=== PATIENT | female | born 1975 | race Caucasian/White ===

== ENCOUNTER 2018-07-11 18:12 | Observation (INO) | payer BC ==
[2018-07-11] MEDS ORDERED: SODIUM CHLORIDE 0.9% 1,000 ML IV STA (18:46)
[2018-07-11] MEDS ORDERED: MORPHINE SULFATE 2 MG/ML SYRINGE IVP STA (18:46)
[2018-07-11] MEDS ORDERED: diphenhydrAMINE 50 MG/ML 1 ML VIAL IVP STA (18:46)
--- NOTE | 2018-07-11 18:51 | ED ---
General Adult HPI - General Chief complaint: Abdominal Pain Stated complaint: Abd Pain-transfer from [place] Source: patient Mode of arrival: ambulatory Limitations: no limitations - History of Present Illness Initial comments: Dictation was produced using [employer] dictation software. please excuse any grammatical, word or spelling errors. Chief Complaint: 42-year-old female with no significant past medical history presents for symptomatic cholelithiasis. History of Present Illness: 2-year-old female was transferred from outside emergency department for symptomatic cholelithiasis. According to documentation patient was sent here for symptomatic cholelithiasis. They state in the documentation that general surgeon felt that patient needed ERCP which was not in service provided at that facility. Transferred her over. There is no area in the documentation that reports that there was concern for acute cholecystitis however patient did have mild leukocytosis of 11.3. Patient currently feels asymptomatic. She does report that her symptoms are only postprandial. The ROS documented in this emergency department record has been reviewed and confirmed by me. Those systems with pertinent positive or negative responses have been documented in the HPI. All other systems are other negative and/or noncontributory. - Related Data Allergies Allergy/AdvReac Type Severity Reaction Status Date / Time No Known Allergies Allergy Verified 07/11/18 18:20 Review of Systems ROS Statement: Those systems with pertinent positive or pertinent negative responses have been documented in the HPI. ROS Other: All systems not noted in ROS Statement are negative. Past Medical History Past Medical History: No Reported History History of Any Multi-Drug Resistant Organisms: None Reported Past Surgical History: No Surgical Hx Reported Past Psychological History: No Psychological Hx Reported Smoking Status: Current every day smoker Past Alcohol Use History: None Reported Past Drug Use History: None Reported General Exam - General Exam Comments Initial Comments: PHYSICAL EXAM: General Impression: Alert and oriented x3, not in acute distress HEENT: Normocephalic atraumatic, extra-ocular movements intact, pupils equal and reactive to light bilaterally, mucous membranes moist. Cardiovascular: Heart regular rate and rhythm, S1&S2 audible, no murmurs, rubs or gallops Chest: Lungs clear to auscultation bilaterally, no rhonchi, no wheeze, no rales Abdomen: Bowel sounds present, abdomen soft, positive right upper quadrant tenderness, non-distended, no organomegaly Musculoskeletal: Pulses present and equal in all extremities, no peripheral edema Motor: Power 5/5 bilaterally, no focal deficits noted Neurological: CN II-XII grossly intact, no focal motor or sensory deficits noted Skin: Intact with no visualized rashes Psych: Normal affect and mood Limitations: no limitations Course Vital Signs 07/11/18 07/11/18 18:16 19:21 Temperature 98.7 F 98.2 F Pulse Rate 83 81 Respiratory 20 18 Rate Blood Pressure 116/71 120/67 O2 Sat by Pulse 98 98 Oximetry Medical Decision Making - Medical Decision Making ED course: 42-year-old female transferred from [facility] for cholelithiasis. Vital signs upon arrival are within normal limits. Repeat laboratory evaluation was obtained here in emergency department. No leukocytosis. Ultrasound was loaded. Transfer document she was reviewed by myself. There is findings to suggest choledocholithiasis however no cholecystitis and appears comfortable. Metabolic panel shows findings to suggest biliary ductal irritation and biliary ductal obstruction. Patient given ceftriaxone and Flagyl. She'll be admitted observation. GI and general surgery was consulted. - Lab Data Result diagrams: 07/11/18 19:30 07/11/18 19:30 Lab Results 07/11/18 07/11/18 Range/Units 19:30 19:30 WBC 7.6 (3.8-10.6) k/uL RBC 4.69 (3.80-5.40) m/uL Hgb 13.6 (11.4-16.0) gm/dL Hct 43.2 (34.0-46.0) % MCV 92.1 (80.0-100.0) fL MCH 29.1 (25.0-35.0) pg MCHC 31.5 (31.0-37.0) g/dL RDW 14.1 (11.5-15.5) % Plt Count 250 (150-450) k/uL Neutrophils % 66 % Lymphocytes % 22 % Monocytes % 8 % Eosinophils % 1 % Basophils % 1 % Neutrophils # 5.0 (1.3-7.7) k/uL Lymphocytes # 1.7 (1.0-4.8) k/uL Monocytes # 0.6 (0-1.0) k/uL Eosinophils # 0.1 (0-0.7) k/uL Basophils # 0.0 (0-0.2) k/uL Sodium 142 (137-145) mmol/L Potassium 3.4 L (3.5-5.1) mmol/L Chloride 110 H (98-107) mmol/L Carbon Dioxide 22 (22-30) mmol/L Anion Gap 10 mmol/L BUN 5 L (7-17) mg/dL Creatinine 0.50 L (0.52-1.04) mg/dL Est GFR (CKD-EPI)AfAm >90 (>60 ml/min/1.73 sqM) Est GFR (CKD-EPI)NonAf >90 (>60 ml/min/1.73 sqM) Glucose 72 L (74-99) mg/dL Calcium 8.5 (8.4-10.2) mg/dL Total Bilirubin 4.3 H (0.2-1.3) mg/dL AST 188 H (14-36) U/L ALT 300 H (9-52) U/L Alkaline Phosphatase 218 H (38-126) U/L Total Protein 6.6 (6.3-8.2) g/dL Albumin 3.6 (3.5-5.0) g/dL Lipase 37 (23-300) U/L Disposition Clinical Impression: Choledocholithiasis Disposition: ADMITTED IP TO THIS HOSP Condition: Fair Referrals: Jackie Reed PAC [REFERRING] - 1-2 days Time of Disposition: 20:04
[2018-07-11] MEDS ORDERED: metroNIDAZOLE-NS PMX 500 MG in SALINE 1 100ML.BAG IVPB STA (19:12)
[2018-07-11] MEDS ORDERED: cefTRIAXone IN SWFI 1,000 MG/10 ML SYRINGE IVP STA (19:13)
[2018-07-11 19:44] LABS: Basophils % (A) 1 %; Eosinophils # (A) 0.1 k/uL (0-0.7); Eosinophils % (A) 1 %; HCT 43.2 % (34.0-46.0); HGB 13.6 gm/dL (11.4-16.0); Lymphocytes # (A) 1.7 k/uL (1.0-4.8); Lymphocytes % (A) 22 %; MCH 29.1 pg (25.0-35.0); MCHC 31.5 g/dL (31.0-37.0); MCV 92.1 fL (80.0-100.0); Mean Platelet Volume 6.5; Monocytes # (A) 0.6 k/uL (0-1.0); Monocytes % (A) 8 %; Neutrophils % (A) 66 %; Platelet Count 250 k/uL (150-450); RBC 4.69 m/uL (3.80-5.40); RDW 14.1 % (11.5-15.5); WBC 7.6 k/uL (3.8-10.6)
[2018-07-11 19:54] LABS: ALT 300 U/L (9-52); AST 188 U/L (14-36); Albumin 3.6 g/dL (3.5-5.0); Alkaline Phosphatase 218 U/L (38-126); Anion Gap 10 mmol/L; Blood Urea Nitrogen 5 mg/dL (7-17); Calcium 8.5 mg/dL (8.4-10.2); Carbon Dioxide 22 mmol/L (22-30); Chloride 110 mmol/L (98-107); Glucose 72 mg/dL (74-99); Lipase 37 U/L (23-300); Potassium 3.4 mmol/L (3.5-5.1); Sodium 142 mmol/L (137-145); Total Bilirubin 4.3 mg/dL (0.2-1.3); Total Protein 6.6 g/dL (6.3-8.2)
[2018-07-11] MEDS ORDERED: NALOXONE 0.4 MG/ML 1 ML VIAL IV PRN (20:00)
[2018-07-11] MEDS ORDERED: ACETAMINOPHEN TAB 325 MG TAB PO PRN (21:03)
[2018-07-11] MEDS: ALPRAZolam 0.25 MG TAB PO SCH (22:37)
[2018-07-11] MEDS: MELATONIN 3 MG TABLET PO SCH (22:37)
[2018-07-11] MEDS: PARoxetine 20 MG TAB PO SCH (22:37)
[2018-07-12] MEDS ORDERED: MORPHINE SULFATE 4 MG/ML SYRINGE IVP STA (03:41)
[2018-07-12] MEDS ORDERED: POTASSIUM CHLORIDE ER 20 MEQ TAB.ER PO STA (06:27)
--- NOTE | 2018-07-12 06:27 | P.HPIM ---
History of Present Illness H&P Date: 07/11/18 Chief Complaint: transferred due to choledocholithiasis for ERCP 42-year-old female with no significant past medical history. Patient was transferred to the hospital after being evaluated by general surgery who thought patient could benefit from ERCP Patient presented to the hospital due to right upper quadrant abdominal pain after eating. pain colicky severe, radiating to the back. Associated with feeling nauseous. Patient reports that normally she doesn't have any symptoms except after eating heavy meals which has started over the past 2 days . she noticed similar pain 9 months ago after having her baby, but only was having very sporadic mild pain over the past 9 months with certain meals that she thought due to indigestion. Denies any fevers or chills denies any coughing chest pain denies any changes in her urinary or bowel habits. Denies any changes in vision or hearing denies any headache. Denies any focal neurologic deficits. She does notice dark urine and pale stool. she is currently having very mild discomfort. Review of Systems Pertinent positives as noted in HPI. All other systems were reviewed and are negative Past Medical History Past Medical History: No Reported History Additional Past Medical History / Comment(s): at age 32 was getting heart palpitations and normal heart susanne was 119-120's -"she was placed on xanax and heart rate stays between 69-96" History of Any Multi-Drug Resistant Organisms: None Reported Past Surgical History: Ear Surgery Additional Past Surgical History / Comment(s): Tubes put in ears at 6. Past Anesthesia/Blood Transfusion Reactions: No Reported Reaction Smoking Status: Current every day smoker - Past Family History Mother Additional Family Medical History / Comment(s): gallstones Father Family Medical History: No Reported History Additional Family Medical History / Comment(s): dads sister age 42 lung cancer and had a cousin young from a brain tumor Medications and Allergies Home Medications Medication Instructions Recorded Confirmed Type ALPRAZolam [Xanax] 0.25 mg PO HS 07/11/18 07/11/18 History PARoxetine [Paxil] 20 mg PO HS 07/11/18 07/11/18 History Allergies Allergy/AdvReac Type Severity Reaction Status Date / Time No Known Allergies Allergy Verified 07/11/18 21:39 Physical Exam Vitals: Vital Signs Temp Pulse Pulse Resp BP BP Pulse Ox 07/11/18 23:00 98.4 F 78 18 123/74 100 07/11/18 20:00 70 18 126/81 100 07/11/18 19:21 98.2 F 81 18 120/67 98 07/11/18 18:16 98.7 F 83 20 116/71 98 Intake and Output 07/11/18 07/11/18 07/12/18 14:59 22:59 06:59 Intake Total 480 0 Balance 480 0 Intake: Oral 480 0 Other: Weight 82.508 kg Constitutional: No acute distress, conversant, pleasant Eyes: Slight scleral jaundice, moist conjunctiva, no lid-lag Pupils equal round reactive to light ENMT: NC/AT Oropharynx clear, no erythema, exudates Neck: Supple, FROM, no masses, or JVD No carotid bruits No thyromegaly Lungs: Clear to auscultation Clear to percussion Normal respiratory effort, no accessory muscle use Cardiovascular: Heart regular in rate and rhythm, No murmurs, gallops, or rubs No peripheral edema Abdominal: Soft Tenderness to palpation in the right upper quadrant of the abdomen , no guarding, rebound or rigidity Abdomen moving with respiration Normoactive bowel sounds No hepatomegaly, No splenomegaly No palpable mass No abdominal wall hernia noted Skin: Normal temperature, tone, texture, turgor No induration No subcutaneous nodules No rash, lesions No ulcers Extremities: No digital cyanosis No clubbing Pedal pulses intact and symmetrical Radial pulses intact and symmetrical No calf tenderness Psychiatric: Alert and oriented to person, place and time Appropriate affect fair judgment Neuro Muscles Strength 5/5 in all 4 extremities Sensation to light touch grossly present throughout Cranial nerves II-XII grossly intact No focal sensory deficits Lymphatics: no palpable cervical or supraclavicular , or inguinal lymph nodes Results CBC & Chem 7: 07/11/18 19:30 07/11/18 19:30 Labs: Abnormal Lab Results - Last 24 Hours (Table) 07/11/18 Range/Units 19:30 Potassium 3.4 L (3.5-5.1) mmol/L Chloride 110 H (98-107) mmol/L BUN 5 L (7-17) mg/dL Creatinine 0.50 L (0.52-1.04) mg/dL Glucose 72 L (74-99) mg/dL Total Bilirubin 4.3 H (0.2-1.3) mg/dL AST 188 H (14-36) U/L ALT 300 H (9-52) U/L Alkaline Phosphatase 218 H (38-126) U/L Thrombosis Risk Factor Assmnt - Choose All That Apply Any of the Below Risk Factors Present?: Yes Each Factor Represents 1 point: Age 41-60 years, Obesity (BMI >25), Varicose veins Other Risk Factors: No Other congenital or acquired thrombophilia - If yes, enter type in comment: No Thrombosis Risk Factor Assessment Total Risk Factor Score: 3 Thrombosis Risk Factor Assessment Level: Moderate Risk Assessment and Plan Assessment: 42-year-old female with no significant past medical history admitted under observation due to choledocholithiasis resulting in elevated liver enzymes and elevation of bilirubin, doubt acute cholecystitis at this time as patient has no white count elevation. Patient was transferred from [facility] due to no available to ERCP. General surgery services both consult Plan: Choledocholithiasis with elevated liver enzymes Nothing by mouth after midnight Fluid hydration Pain control General surgery and GI service consult Patient received 1 dose of antibiotic in the ED continue with rocephine Abd US Hypokalemia replaced by mouth DVT prophylaxis heparin subcu 3 times a day Preformed a thorough record review from recent ER visit at [facility] CODE STATUS: Full code Discussed with: Patient, ER, RN Anticipated discharge: <[address]: Home A total of 50 minutes was spent on the care of this complex patient more than 50 % of the time was spent in counseling and care coordination.
[2018-07-12] MEDS ORDERED: SODIUM CHLORIDE 0.9% 1,000 ML IV SCH (07:15)
[2018-07-12 07:20] LABS: Basophils % (A) 0 %; Eosinophils # (A) 0.1 k/uL (0-0.7); Eosinophils % (A) 1 %; HCT 42.9 % (34.0-46.0); HGB 13.3 gm/dL (11.4-16.0); Lymphocytes # (A) 1.5 k/uL (1.0-4.8); Lymphocytes % (A) 18 %; MCH 28.8 pg (25.0-35.0); MCHC 30.9 g/dL (31.0-37.0); MCV 93.2 fL (80.0-100.0); Mean Platelet Volume 6.9; Monocytes # (A) 0.7 k/uL (0-1.0); Monocytes % (A) 8 %; Neutrophils # (A) 5.9 k/uL (1.3-7.7); Neutrophils % (A) 71 %; Platelet Count 223 k/uL (150-450); RDW 14.1 % (11.5-15.5); WBC 8.3 k/uL (3.8-10.6)
[2018-07-12 07:34] LABS: ALT 264 U/L (9-52); AST 165 U/L (14-36); Albumin 3.2 g/dL (3.5-5.0); Alkaline Phosphatase 209 U/L (38-126); Anion Gap 7 mmol/L; Blood Urea Nitrogen 6 mg/dL (7-17); Calcium 8.3 mg/dL (8.4-10.2); Carbon Dioxide 23 mmol/L (22-30); Chloride 111 mmol/L (98-107); Glucose 76 mg/dL (74-99); Potassium 4.1 mmol/L (3.5-5.1); Sodium 141 mmol/L (137-145); Total Bilirubin 4.1 mg/dL (0.2-1.3); Total Protein 6.3 g/dL (6.3-8.2)
[2018-07-12] MEDS: cefTRIAXone IN SWFI 1,000 MG/10 ML SYRINGE IVP SCH (08:43)
[2018-07-12] MEDS: HEPARIN SODIUM,PORCINE 5,000 UNIT/ML 1 ML VIAL SQ SCH ×2 (08:43→16:26)
[2018-07-12] MEDS: MORPHINE SULFATE 4 MG/ML SYRINGE IVP PRN ×3 (08:52→18:08)
--- NOTE | 2018-07-12 09:43 | P.GSCN ---
History of Present Illness Consult date: 07/12/18 Reason for Consult: Abdominal pain and elevated liver function tests History of present illness: The patient's a 42-year-old female who was transferred from [facility] due to concerns for choledocholithiasis. The patient admits to occasional discomfort in her abdomen with fatty foods since the of her child. Her baby is 9 months old. She will have heartburn symptoms after eating food such as chocolate shake for [employer]. Last 2 days she's noticed that her urine is very dark in her stool is extremely light-colored. She doesn't really notice any jaundice. No fevers or chills. Pain is epigastrium and right upper quadrant. Review of Systems All systems: negative Past Medical History Past Medical History: No Reported History Additional Past Medical History / Comment(s): at age 32 was getting heart palpitations and normal heart susanne was 119-120's -"she was placed on xanax and heart rate stays between 69-96" History of Any Multi-Drug Resistant Organisms: None Reported Past Surgical History: Ear Surgery Additional Past Surgical History / Comment(s): Tubes put in ears at 6. Past Anesthesia/Blood Transfusion Reactions: No Reported Reaction Smoking Status: Current every day smoker - Past Family History Mother Additional Family Medical History / Comment(s): gallstones, mother also required ERCP Father Family Medical History: No Reported History Additional Family Medical History / Comment(s): dads sister age 42 lung cancer and had a cousin young from a brain tumor Medications and Allergies Home Medications Medication Instructions Recorded Confirmed Type ALPRAZolam [Xanax] 0.25 mg PO HS 07/11/18 07/11/18 History PARoxetine [Paxil] 20 mg PO HS 07/11/18 07/11/18 History Allergies Allergy/AdvReac Type Severity Reaction Status Date / Time No Known Allergies Allergy Verified 07/11/18 21:39 Surgical - Exam Osteopathic Statement: *. No significant issues noted on an osteopathic structural exam other than those noted in the History and Physical/Consult. Vital Signs Temp Pulse Resp BP Pulse Ox 98.7 F 83 20 116/71 98 07/11/18 18:16 07/11/18 18:16 07/11/18 18:16 07/11/18 18:16 07/11/18 18:16 - General well developed, well nourished, no distress - Eyes normal ocular movement - Neck trachea midline, no lymphadectomy - Respiratory normal respiratory effort, clear to auscultation - Cardiovascular Rhythm: regular - Abdomen Abdomen: soft, tender (Epigastric and right upper quadrant), no guarding, no rigid, no rebound, no distended Hernia: no umbilical - Psychiatric oriented to time, oriented to person, oriented to place, speech is normal, memory intact Results - Labs 07/12/18 07:08 07/12/18 07:08 Abnormal Lab Results - Last 24 Hours (Table) 07/11/18 07/12/18 07/12/18 Range/Units 19:30 07:08 07:08 MCHC 30.9 L (31.0-37.0) g/dL Potassium 3.4 L (3.5-5.1) mmol/L Chloride 110 H 111 H (98-107) mmol/L BUN 5 L 6 L (7-17) mg/dL Creatinine 0.50 L (0.52-1.04) mg/dL Glucose 72 L (74-99) mg/dL Calcium 8.3 L (8.4-10.2) mg/dL Total Bilirubin 4.3 H 4.1 H (0.2-1.3) mg/dL AST 188 H 165 H (14-36) U/L ALT 300 H 264 H (9-52) U/L Alkaline Phosphatase 218 H 209 H (38-126) U/L Albumin 3.2 L (3.5-5.0) g/dL Diabetes panel 07/11/18 07/12/18 Range/Units 19:30 07:08 Sodium 142 141 (137-145) mmol/L Potassium 3.4 L 4.1 (3.5-5.1) mmol/L Chloride 110 H 111 H (98-107) mmol/L Carbon Dioxide 22 23 (22-30) mmol/L BUN 5 L 6 L (7-17) mg/dL Creatinine 0.50 L 0.57 (0.52-1.04) mg/dL Glucose 72 L 76 (74-99) mg/dL Calcium 8.5 8.3 L (8.4-10.2) mg/dL AST 188 H 165 H (14-36) U/L ALT 300 H 264 H (9-52) U/L Alkaline Phosphatase 218 H 209 H (38-126) U/L Total Protein 6.6 6.3 (6.3-8.2) g/dL Albumin 3.6 3.2 L (3.5-5.0) g/dL Calcium panel 07/11/18 07/12/18 Range/Units 19:30 07:08 Calcium 8.5 8.3 L (8.4-10.2) mg/dL Albumin 3.6 3.2 L (3.5-5.0) g/dL Pituitary panel 07/11/18 07/12/18 Range/Units 19:30 07:08 Sodium 142 141 (137-145) mmol/L Potassium 3.4 L 4.1 (3.5-5.1) mmol/L Chloride 110 H 111 H (98-107) mmol/L Carbon Dioxide 22 23 (22-30) mmol/L BUN 5 L 6 L (7-17) mg/dL Creatinine 0.50 L 0.57 (0.52-1.04) mg/dL Glucose 72 L 76 (74-99) mg/dL Calcium 8.5 8.3 L (8.4-10.2) mg/dL Adrenal panel 07/11/18 07/12/18 Range/Units 19:30 07:08 Sodium 142 141 (137-145) mmol/L Potassium 3.4 L 4.1 (3.5-5.1) mmol/L Chloride 110 H 111 H (98-107) mmol/L Carbon Dioxide 22 23 (22-30) mmol/L BUN 5 L 6 L (7-17) mg/dL Creatinine 0.50 L 0.57 (0.52-1.04) mg/dL Glucose 72 L 76 (74-99) mg/dL Calcium 8.5 8.3 L (8.4-10.2) mg/dL Total Bilirubin 4.3 H 4.1 H (0.2-1.3) mg/dL AST 188 H 165 H (14-36) U/L ALT 300 H 264 H (9-52) U/L Alkaline Phosphatase 218 H 209 H (38-126) U/L Total Protein 6.6 6.3 (6.3-8.2) g/dL Albumin 3.6 3.2 L (3.5-5.0) g/dL Assessment and Plan (1) Choledocholithiasis Current Visit: Yes Status: Acute Code(s): K80.50 - CALCULUS OF BILE DUCT W/ O CHOLANGITIS OR CHOLECYST W/O OBST SNOMED Code(s): 331630115 Plan: I discussed gallbladder disease with the patient. GI has been consult for ERCP. Once the common bile duct is cleared of any gallstones, recommendation is for laparoscopic cholecystectomy this admission. She doesn't have recurrent choledocholithiasis. The recommendations to follow.
--- NOTE | 2018-07-12 10:39 | US ---
EXAMINATION TYPE: US abdomen limited DATE OF EXAM: 07/12/2018 COMPARISON: outside films from [facility], 07/11/2018 CLINICAL HISTORY: r/o acute cholecystitis . EXAM MEASUREMENTS: Liver Length: 14.5 cm Gallbladder Wall: 0.4 cm CBD: 0.8 cm Right Kidney: 9.1 x 5.1 x 60 cm cm Pancreas: Obscured by bowel gas Liver: wnl Gallbladder: multiple stones Evidence for sonographic Schofield's sign: no CBD: dilated Right Kidney: No hydronephrosis or masses seen IMPRESSION: 1. Cholelithiasis with common bile duct being mildly dilated. No pericholecystic fluid identified. Co rrelate clinically.
[2018-07-12] MEDS: PANTOPRAZOLE 40 MG/10 ML VIAL IVP SCH (11:37)
--- NOTE | 2018-07-12 12:08 | P.PN ---
Subjective Progress Note Date: 07/12/18 Principal diagnosis: right upper quadrant abdominal pain Patient was seen and examined. No acute events overnight. Patient complains of right upper quadrant abdominal pain. Pain is well-controlled with morphine IV. She denies any nausea or vomiting. Patient endorses cesar colored stools and dark urine. Only current complaint is hunger. She denies fever or chills. Objective - Vital Signs Vital signs: Vital Signs Temp 98 F 07/12/18 07:55 Pulse 59 L 07/12/18 07:55 Resp 16 07/12/18 07:55 BP 119/70 07/12/18 07:55 Pulse Ox 97 07/12/18 07:55 Intake & Output 07/11/18 07/12/18 07/12/18 18:59 06:59 18:59 Intake Total 480 Balance 480 Weight 82.508 kg Intake: Oral 480 - Exam General: [non toxic], [no distress], [appears at stated age] Derm: [warm], [dry] Head: [atraumatic], [normocephalic], [symmetric] Eyes: [EOMI], [no lid lag], [anicteric sclera] Mouth: [no lip lesion], [mucus membranes moist] Cardiovascular: [S1S2 reg], [no murmur], [positive posterior tibial pulse bilateral] Lungs: [CTA bilateral], [no rhonchi, no rales] , [no accessory muscle use] Abdominal: [soft], [epigastric area tender to palpation], [no guarding], [no appreciable organomegaly], [positive Schofield sign[ Ext: [no gross muscle atrophy], [no edema], [no contractures] Neuro: [ CN II-XI grossly intact], [no focal neuro deficits] Psych: [Alert], [oriented], [appropriate affect] - Labs CBC & Chem 7: 07/12/18 07:08 07/12/18 07:08 Labs: Abnormal Lab Results - Last 24 Hours (Table) 07/11/18 07/12/18 07/12/18 Range/Units 19:30 07:08 07:08 MCHC 30.9 L (31.0-37.0) g/dL Potassium 3.4 L (3.5-5.1) mmol/L Chloride 110 H 111 H (98-107) mmol/L BUN 5 L 6 L (7-17) mg/dL Creatinine 0.50 L (0.52-1.04) mg/dL Glucose 72 L (74-99) mg/dL Calcium 8.3 L (8.4-10.2) mg/dL Total Bilirubin 4.3 H 4.1 H (0.2-1.3) mg/dL AST 188 H 165 H (14-36) U/L ALT 300 H 264 H (9-52) U/L Alkaline Phosphatase 218 H 209 H (38-126) U/L Albumin 3.2 L (3.5-5.0) g/dL Assessment and Plan Assessment: Assessment and Plan 1. Choledocolithiasis: Transferred from [facility] for ERCP. Patient is afebrile with no leukocytosis. T. Bili 4.1, AST 165, ALT 264, ALK 209 indicating obstruction. Lipase is within normal limits. NPO for possible intervention. NS at 125 ml/h. Pain management with Morphine 4 mg IV Q4H and Tylenol 650 mg PO Q6H. Continue Rocephin 1g IV QD for concerns for cholecystitis. FU RUQ US, Gen Sx and GI consult 2. Anxiety and Depression: Xanax 0.25 mg PO QHS, Paroxetine 20 mg PO QHS. 3. DVT/GI Prophylaxis: Heparin 5000 units SQ TID. Will add Protonix 40 mg IV QD. GI consulted for ERCP. General surgery consulted for laparoscopic cholecystectomy.
[2018-07-12 13:34] LABS: Glucose,Whole Blood 72 mg/dL (75-99)
[2018-07-12] MEDS: DEXTROSE 5%-0.9% NACL 1,000 ML IV SCH ×2 (16:25→21:05)
--- NOTE | 2018-07-12 18:01 | P.CONS ---
History of Present Illness - Reason for Consult Consult date: 07/12/18 Abdominal pain, elevated liver enzymes, choledocholithiasis Requesting physician: Ayan Raza - Chief Complaint Abdominal pain - History of Present Illness The patient is a pleasant 42-year-old female who presents to the emergency department with complaints of severe right upper quadrant pain. The patient describes the pain as occurring in the right upper quadrant of her abdomen with radiation to her back. The pain was sharp and colicky in quality and severe with associated nausea and vomiting. The patient reports similar episodes over the past 9 months but believe they were due to uncontrolled reflux and will take a liquid antacid at home to try to treat the symptoms. The symptoms began at the end of her 9 months ago. She does report a history of gastroesophageal reflux disease during her but is otherwise asymptomatic, denying any dysphagia or food sticking. On presentation hemoglobin was 13.3 and liver enzymes were found to be elevated with a total bilirubin 4.3 alkaline phosphatase 218 AST 188 and ALT 300. Ultrasound showed cholelithiasis with a mildly dilated common bile duct. The patient does report that her mother also had gallstones. She also notes darkening of her urine and passing light-colored stools. She denies any hematochezia or melena. Review of Systems Constitutional: No weight loss, fevers, chills or fatigue Eyes: No change in vision, double vision, pain in her eyes Ears: No change in hearing or new onset tinnitus Nose: No congestion or discharge reported Mouth: No thrush or lesions reported Lungs: No cough, hemoptysis, wheezing or shortness of breath reported Gastrointestinal: As per history of present illness Cardiac: No shortness of breath, chest pain, orthopnea Extremities: No lower extremity edema reported excellent Skin: No new rashes or lesions Neuro: No new confusion, memory problems, focal deficits Past Medical History Past Medical History: No Reported History Additional Past Medical History / Comment(s): at age 32 was getting heart palpitations and normal heart susanne was 119-120's -"she was placed on xanax and heart rate stays between 69-96" History of Any Multi-Drug Resistant Organisms: None Reported Past Surgical History: Ear Surgery Additional Past Surgical History / Comment(s): Tubes put in ears at 6. Past Anesthesia/Blood Transfusion Reactions: No Reported Reaction Smoking Status: Current every day smoker - Past Family History Mother Additional Family Medical History / Comment(s): gallstones, mother also required ERCP Father Family Medical History: No Reported History Additional Family Medical History / Comment(s): dads sister age 42 lung cancer and had a cousin young from a brain tumor Medications and Allergies Home Medications Medication Instructions Recorded Confirmed Type ALPRAZolam [Xanax] 0.25 mg PO HS 07/11/18 07/11/18 History PARoxetine [Paxil] 20 mg PO HS 07/11/18 07/11/18 History Allergies Allergy/AdvReac Type Severity Reaction Status Date / Time No Known Allergies Allergy Verified 07/11/18 21:39 Physical Exam Vitals: Vital Signs Temp Pulse Pulse Resp BP BP Pulse Ox 07/12/18 15:25 98.2 F 67 16 131/68 96 07/12/18 11:54 98.2 F 63 16 105/57 96 07/12/18 07:55 98 F 59 L 16 119/70 97 07/11/18 23:00 98.4 F 78 18 123/74 100 07/11/18 20:00 70 18 126/81 100 07/11/18 19:21 98.2 F 81 18 120/67 98 07/11/18 18:16 98.7 F 83 20 116/71 98 Intake and Output 07/12/18 07/12/18 07/12/18 06:59 14:59 22:59 Intake Total 0 Balance 0 Intake: Oral 0 Other: # Voids 3 Constitutional: Lying in bed, no apparent distress Eyes: No scleral icterus, conjunctival injection Ears: Symmetric, no discharge Nose: No discharge noted Mouth: Moist mucous membranes, no oral lesions appreciated Lungs: Clear, no wheezing appreciated, no respiratory distress Gastrointestinal: Abdomen soft, nondistended, with no guarding or rigidity Cardiac: Regular rate and rhythm Extremities: No lower extremity edema or rashes noted Skin: No new rashes or lesions Neuro: Awake alert and oriented 3 with no focal deficits Results CBC & Chem 7: 07/12/18 07:08 07/12/18 07:08 Labs: Abnormal Lab Results - Last 24 Hours (Table) 07/11/18 07/12/18 07/12/18 Range/Units 19:30 07:08 07:08 MCHC 30.9 L (31.0-37.0) g/dL Potassium 3.4 L (3.5-5.1) mmol/L Chloride 110 H 111 H (98-107) mmol/L BUN 5 L 6 L (7-17) mg/dL Creatinine 0.50 L (0.52-1.04) mg/dL Glucose 72 L (74-99) mg/dL POC Glucose (mg/dL) (75-99) mg/dL Calcium 8.3 L (8.4-10.2) mg/dL Total Bilirubin 4.3 H 4.1 H (0.2-1.3) mg/dL AST 188 H 165 H (14-36) U/L ALT 300 H 264 H (9-52) U/L Alkaline Phosphatase 218 H 209 H (38-126) U/L Albumin 3.2 L (3.5-5.0) g/dL 07/12/18 Range/Units 13:23 MCHC (31.0-37.0) g/dL Potassium (3.5-5.1) mmol/L Chloride (98-107) mmol/L BUN (7-17) mg/dL Creatinine (0.52-1.04) mg/dL Glucose (74-99) mg/dL POC Glucose (mg/dL) 72 L (75-99) mg/dL Calcium (8.4-10.2) mg/dL Total Bilirubin (0.2-1.3) mg/dL AST (14-36) U/L ALT (9-52) U/L Alkaline Phosphatase (38-126) U/L Albumin (3.5-5.0) g/dL US - abdomen: report reviewed (Ultrasound significant for cholelithiasis with mildly dilated CBD) Assessment and Plan (1) Choledocholithiasis Narrative/Plan: Patient presenting with right upper quadrant pain severe in nature associated with eating with radiation to her back. In the setting of ultrasound showing significant cholelithiasis with mildly dilated CBD and elevation of total bilirubin of 4.3 on presentation with associated ALT of 300 is highly suspicious for choledocholithiasis. Current Visit: Yes Status: Acute Code(s): K80.50 - CALCULUS OF BILE DUCT W/ O CHOLANGITIS OR CHOLECYST W/O OBST SNOMED Code(s): 364580471 (2) Elevated liver enzymes Narrative/Plan: Secondary to above Current Visit: Yes Status: Acute Code(s): R74.8 - ABNORMAL LEVELS OF OTHER SERUM ENZYMES SNOMED Code(s): 455835091 (3) Right upper quadrant abdominal pain Narrative/Plan: Secondary to above Current Visit: Yes Status: Acute Code(s): R10.11 - RIGHT UPPER QUADRANT PAIN SNOMED Code(s): 049235105 Plan: Supportive care On antibiotic therapy, on Rocephin and Flagyl Okay for liquid Nothing by mouth after midnight Plan for ERCP tomorrow Surgical service following, with timing of cholecystectomy further discretion Thank you for allowing us to participate in the care of this patient, we will continue to follow
[2018-07-12] MEDS: MELATONIN 3 MG TABLET PO SCH (21:05)
[2018-07-12] MEDS: ALPRAZolam 0.25 MG TAB PO SCH (21:05)
[2018-07-12] MEDS: PARoxetine 20 MG TAB PO SCH (21:05)
[2018-07-13] MEDS: HEPARIN SODIUM,PORCINE 5,000 UNIT/ML 1 ML VIAL SQ SCH ×3 (00:13→16:01)
[2018-07-13 08:27] LABS: INR 1.1 (<1.2); Prothrombin Time 10.3 sec (9.0-12.0)
[2018-07-13] MEDS: cefTRIAXone IN SWFI 1,000 MG/10 ML SYRINGE IVP SCH (08:42)
[2018-07-13] MEDS: DEXTROSE 5%-0.9% NACL 1,000 ML IV SCH (08:43)
[2018-07-13] MEDS: PANTOPRAZOLE 40 MG/10 ML VIAL IVP SCH (08:50)
[2018-07-13] MEDS ORDERED: INDOMETHACIN 50MG SUPPOSITORY RECTAL ONE (12:00)
[2018-07-13] MEDS ORDERED: IV FLUID CONTINUATION 900 ML IV ONE (13:28)
--- NOTE | 2018-07-13 13:36 | P.PN ---
Progress Note - Text Progress Note Date: 07/13/18 The patient is doing well today. Head denied abdominal pain earlier. She's going down for ERCP today. We'll await the results of that. His lungs she has no complications in regards to the ERCP, will do a laparoscopic cholecystectomy for her tomorrow. Further recommendations to follow.
--- NOTE | 2018-07-13 13:37 | P.PN ---
Subjective Progress Note Date: 07/13/18 Principal diagnosis: Abdominal pain Patient was seen and examined. No acute events overnight. Patient reports improvement in her abdominal pain. Has not had any more injections of Morphine since yesterday. Able to tolerate CLD yesterday. Waiting for ERCP. Objective - Vital Signs Vital signs: Vital Signs Temp 98.2 F 07/13/18 12:13 Pulse 63 07/13/18 12:13 Resp 16 07/13/18 12:13 BP 122/74 07/13/18 12:13 Pulse Ox 95 07/13/18 12:13 Intake & Output 07/12/18 07/13/18 07/13/18 18:59 06:59 18:59 Intake Total 780 Balance 780 Intake: Oral 780 Other: # Voids 3 1 - Exam General: [non toxic], [no distress], [appears at stated age] Derm: [warm], [dry] Head: [atraumatic], [normocephalic], [symmetric] Eyes: [EOMI], [no lid lag], [anicteric sclera] Mouth: [no lip lesion], [mucus membranes moist] Cardiovascular: [S1S2 reg], [no murmur], [positive posterior tibial pulse bilateral] Lungs: [CTA bilateral], [no rhonchi, no rales] , [no accessory muscle use] Abdominal: [soft], [epigastric area tender to palpation], [no guarding], [no appreciable organomegaly], [positive Schofield sign[ Ext: [no gross muscle atrophy], [no edema], [no contractures] Neuro: [ CN II-XI grossly intact], [no focal neuro deficits] Psych: [Alert], [oriented], [appropriate affect] - Labs CBC & Chem 7: 07/12/18 07:08 07/12/18 07:08 Labs: Abnormal Lab Results - Last 24 Hours (Table) 07/12/18 Range/Units 13:23 POC Glucose (mg/dL) 72 L (75-99) mg/dL Assessment and Plan Assessment: Assessment and Plan 1. Choledocolithiasis: Transferred from OSH for ERCP. Patient is afebrile with no leukocytosis. T. Bili 4.1, AST 165, ALT 264, ALK 209 indicating obstruction. RUQ US shows cholelithiasis with CBD dilation. Lipase is within normal limits. NPO for ERCP. NS at 125 ml/h. Pain management with Morphine 4 mg IV Q4H and Tylenol 650 mg PO Q6H. Continue Rocephin 1g IV QD for concerns for cholecystitis. FU Gen Sx and GI consult 2. Anxiety and Depression: Xanax 0.25 mg PO QHS, Paroxetine 20 mg PO QHS. 3. DVT/GI Prophylaxis: Heparin 5000 units SQ TID. Will add Protonix 40 mg IV QD. GI plans to do ERCP today. General surgery consulted for laparoscopic cholecystectomy, likely tomorrow.
[2018-07-13] MEDS ORDERED: fentaNYL (PF) 50 MCG/ML 2 ML AMP ONE (13:47)
[2018-07-13] MEDS ORDERED: MIDAZOLAM 2 MG/2 ML VIAL ONE (13:47)
[2018-07-13] MEDS ORDERED: GLYCOPYRROLATE 0.2 MG/ML 2 ML VIAL ONE (13:47)
[2018-07-13] MEDS ORDERED: LIDOCAINE 1% INJ 10MG/ML (20 ML MDV) ONE (13:47)
[2018-07-13] MEDS ORDERED: PROPOFOL 10 MG/ML 20 ML VIAL IV ONE (13:47)
[2018-07-13] MEDS ORDERED: KETAMINE 10 MG/ML 20 ML VIAL ONE (13:47)
[2018-07-13] MEDS ORDERED: GLUCAGON 1 MG/ML VIAL ONE (13:47)
[2018-07-13] MEDS ORDERED: IOHEXOL 300 MG/ML 50 ML BOTTLE MISCELLANE ONE (15:13)
--- NOTE | 2018-07-13 15:43 | P.PCN ---
Date of Procedure: 07/13/18 Description of Procedure: Brief history: Patient is a 42 year-old pleasant lady scheduled for an ERCP as part of evaluation of abdominal pain and elevated serum transaminases for the last 2 days' duration. The patient reports intermittent abdominal pain since giving 9 months ago. She presented to Hospital when pain in the epigastric region of her abdomen and right upper quadrant became severe. She reports episodes of pain would occur in relation to eating. On initial presentation the patient had a bilirubin greater than 4 and ALT greater than 200 with typical biliary pain. Ultrasound was performed which showed mild hepatic dilation. Procedure performed: ERCP with sphincterotomy and balloon sweep Preoperative diagnoses: Bile duct sludge, filling defect on cholangiogram prior to balloon sweep IV sedation per anesthesia: Procedure: After informed consent was obtained from the patient and after the risks benefits and complications including bleeding perforation and pancreatitis explained in detail the patient was brought into the endoscopy unit. The patient was placed in prone position and IV conscious sedation was administered by anesthesia under continuous monitoring. The Olympus side-viewing duodenoscope was then inserted into the mouth and esophagus intubated without any difficulty. The scope was gradually advanced into the stomach and duodenum. The major papilla was identified without any difficulty. Cannulation of the ampulla was performed with an Ultratome, with a 0.35 wire advanced into the common bile duct. Cholangiogram was then performed which showed mild CBD dilation with a bile duct measuring approximately 9 mm. A filling defect in the mid bile duct was noted. A 7 mm sphincterotomy was then performed. The patient then had sequential balloon sweep of her common bile duct starting at the hilum with a 8.5 and 11.5 balloon. Balloon sweep was significant for gallbladder sludge. Cholangiogram was then performed with no filling defect noted. Further balloon sweeps were performed to remove dye. The pancreatic duct was cannulated with a wire but no injection of dye occurred. The patient is on antibiotics therapy and was given Indocin. Impression: CBD filling defect noted treated with sphincterotomy and balloon sweep which was productive of sludge. Repeat cholangiogram showed no filling defect. Recommendations: The findings of this examination were discussed with the patient. The patient was sent back to her room. She is okay for a liquid diet and nothing by mouth after midnight for cholecystectomy in the morning. Patient is currently on antibiotics and Indocin was given to prevent post-ERCP pancreatitis.
[2018-07-13] MEDS ORDERED: ONDANSETRON 4 MG/2 ML VIAL IVP STA (16:22)
--- NOTE | 2018-07-13 17:01 | FL ---
EXAMINATION TYPE: FL ERCP biliary duct only DATE OF EXAM: 07/13/2018 CLINICAL HISTORY: 42-year-old female with CBD stone TECHNIQUE: Fluoroscopy. COMPARISON: None. FINDINGS: Fluoroscopic guidance was provided during procedure performed by Dr. Maradiaga. A total of 4 minutes 7 seconds of fluoroscopic time was utilized during the procedure and 5 spot images was acqu ired. IMPRESSION: As Above.
[2018-07-13] MEDS: ALPRAZolam 0.25 MG TAB PO SCH (20:11)
[2018-07-13] MEDS: PARoxetine 20 MG TAB PO SCH (20:11)
[2018-07-13] MEDS: MELATONIN 3 MG TABLET PO SCH (20:12)
[2018-07-14] MEDS: HEPARIN SODIUM,PORCINE 5,000 UNIT/ML 1 ML VIAL SQ SCH ×3 (00:08→15:14)
[2018-07-14] MEDS: DEXTROSE 5%-0.9% NACL 1,000 ML IV SCH ×3 (00:13→15:13)
[2018-07-14 06:45] LABS: ALT 280 U/L (9-52); AST 152 U/L (14-36); Alkaline Phosphatase 205 U/L (38-126); Amylase <30 U/L (30-110); Anion Gap 5 mmol/L; Blood Urea Nitrogen 2 mg/dL (7-17); Calcium 8.3 mg/dL (8.4-10.2); Carbon Dioxide 25 mmol/L (22-30); Chloride 112 mmol/L (98-107); Glucose 111 mg/dL (74-99); Lipase 33 U/L (23-300); Potassium 3.2 mmol/L (3.5-5.1); Sodium 142 mmol/L (137-145); Total Bilirubin 1.6 mg/dL (0.2-1.3); Total Protein 5.9 g/dL (6.3-8.2)
[2018-07-14] MEDS: cefTRIAXone IN SWFI 1,000 MG/10 ML SYRINGE IVP SCH (08:24)
[2018-07-14] MEDS: PANTOPRAZOLE 40 MG/10 ML VIAL IVP SCH (08:29)
[2018-07-14] MEDS ORDERED: ONDANSETRON 4 MG/2 ML VIAL IVP ONE ×2 (10:03→11:57)
[2018-07-14] MEDS ORDERED: DEXAMETHASONE SOD PHOSPHATE 10 MG/ML 1 ML VIAL IV ONE (10:04)
[2018-07-14] MEDS ORDERED: IV FLUID CONTINUATION 1,000 ML IV ONE (10:05)
--- NOTE | 2018-07-14 10:17 | P.PN ---
Progress Note - Text Progress Note Date: 07/14/18 The patient went for successful ERCP yesterday. Her liver function tests are improved today. Amylase and lipase are not elevated. She feels okay. We will proceed with a laparoscopic cholecystectomy possible open. If she is able to tolerate a diet postoperatively she would be surgically stable for discharge after the operation this afternoon. The surgical procedure, risks, complications were discussed with her, questions were encouraged and answered. We'll proceed with laparoscopic cholecystectomy today.
[2018-07-14] MEDS ORDERED: ROCURONIUM BROMIDE 10 MG/ML 10 ML VIAL IV ONE (10:54)
[2018-07-14] MEDS ORDERED: GLYCOPYRROLATE 0.2 MG/ML 2 ML VIAL ONE (10:54)
[2018-07-14] MEDS ORDERED: SUCCINYLCHOLINE CHLORIDE 100 MG/5 ML SYR IV ONE (10:54)
[2018-07-14] MEDS ORDERED: fentaNYL (PF) 50 MCG/ML 2 ML AMP ONE (10:54)
[2018-07-14] MEDS ORDERED: BUPIVACAINE-EPI 0.5%-1:200,000 10 ML VIAL SQ ONE (10:54)
[2018-07-14] MEDS ORDERED: LACTATED RINGERS 1,000 ML IV ONE ×2 (10:54→12:18)
[2018-07-14] MEDS ORDERED: LIDOCAINE 1% INJ 10MG/ML (20 ML MDV) ONE (10:54)
[2018-07-14] MEDS ORDERED: MIDAZOLAM 2 MG/2 ML VIAL ONE (10:54)
[2018-07-14] MEDS ORDERED: KETOROLAC 30 MG/ML 1 ML VIAL ONE (10:54)
[2018-07-14] MEDS ORDERED: PROPOFOL 10 MG/ML 20 ML VIAL IV ONE (10:54)
[2018-07-14] MEDS ORDERED: NEOSTIGMINE 1 MG/ML 10 ML VIAL ONE (10:54)
[2018-07-14] MEDS ORDERED: HYDROcodone/APAP 5-325MG 1 EACH TAB PO PRN (11:45)
--- NOTE | 2018-07-14 11:45 | P.OP ---
Date of Procedure: 07/14/18 Preoperative Diagnosis: Cholelithiasis, choledocholithiasis Postoperative Diagnosis: Same Procedure(s) Performed: Laparoscopic cholecystectomy Anesthesia: JAKE Surgeon: Natalie Corrigan Estimated Blood Loss (ml): 20 Pathology: other (Gallbladder) Condition: stable Disposition: PACU Indications for Procedure: The patient presented with abdominal pain and elevated liver function tests consistent with choledocholithiasis. She underwent ERCP yesterday Description of Procedure: The patient was taken the operative suite where she is prepped and draped in the usual sterile manner under a general endotracheal anesthetic. An infraumbilical incision was made. A Veress needle was placed into the abdominal cavity and pneumoperitoneum was established with CO2 gas. Sites were chosen for accessory trochars and these are placed through small skin incisions. The gallbladder was distended and the wall was a little thickened. Otherwise the liver, diaphragm, large and small bowel were normal where they were seen. The fundus of the gallbladder is grasped and retracted superiorly. Don's pouch is grasped and retracted laterally. There was a stone impacted in Lechuga's pouch. The cystic duct is dissected free. It's triply clipped and cut. It's further secured with 0 PDS Endoloop. The cystic artery is then dissected free. It's triply clipped and cut. The gallbladder is then dissected free from the liver bed. Small bleeding points were controlled with electrocautery. The gallbladder is removed through the umbilical port site. The liver bed was then reexamined and noted to be hemostatic. The pneumoperitoneum was released. The trochars were removed. The fascia at the umbilicus was closed with 0 Vicryl. The skin incisions were closed with 4-0 Vicryl in a subcuticular manner. Steri-Strips and dressings were applied. She tolerated the procedure without difficulty was taken recovery room in satisfactory condition. According to or personnel, all counts are correct.
[2018-07-14] MEDS ORDERED: HYDROmorphone 1 MG/ML 1 ML SYRINGE IVP ONE ×2 (11:57→12:04)
[2018-07-14 12:51] VITALS: RESP 16; TEMP 98.3
--- NOTE | 2018-07-14 14:27 | P.DS ---
Providers Date of admission: 07/11/18 20:00 Expected date of discharge: 07/14/18 Attending physician: Tiffany Maradiaga MD Consults: 07/11/18 20:04 Consult Physician Routine Consulting Provider: Natalie Corrigan Consult Reason/Comments: choledocholithiasis Do you want consulting provider notified?: Yes 07/11/18 20:05 Consult Physician Routine Consulting Provider: Sam Fraire Consult Reason/Comments: may need ercp Do you want consulting provider notified?: Yes Primary care physician: Omari Segoviacel - Discharge Diagnosis(es) (1) Anxiety and depression Current Visit: Yes Status: Acute (2) Choledocholithiasis Current Visit: Yes Status: Acute Hospital Course: 42-year-old female with no significant past medical history. Patient was transferred to the hospital after being evaluated by general surgery who thought patient could benefit from ERCP. Patient presented to the hospital due to right upper quadrant abdominal pain after eating. Pain was colicky and radiating to the back. Associated with feeling nauseous. Denies any fevers or chills. Denies any coughing or chest pain. Denies any changes in vision or hearing denies any headache. Denies any focal neurologic deficits. She did endorse dark urine and light colored stools. With regard to her choledocholithiasis, patient was afebrile with no leukocytosis during her admission. Total bilirubin was 4.1, AST was 165, ALT was 264, alkaline phosphatase of 209. This indicated obstructive jaundice. Right upper quadrant ultrasound showed cholelithiasis with common bile duct dilation. Lipase was within normal limits. Patient underwent ERCP successfully , and underwent laparoscopic cholecystectomy on 07/14/2018. Her pain was well- controlled after her procedure. Patient was advised follow-up with her primary care provider within 1-2 days of discharge. Patient was advised to follow-up with her surgeon with the appointment given to her. Patient was seen and examined prior to discharge. Patient reports mild abdominal pain at the site of incision. She denies any nausea, vomiting, fever , chills, changes in urination or bowel habits. General: [non toxic], [no distress], [appears at stated age] Derm: [warm], [dry] Head: [atraumatic], [normocephalic], [symmetric] Eyes: [EOMI], [no lid lag], [anicteric sclera] Mouth: [no lip lesion], [mucus membranes moist] Cardiovascular: [S1S2 reg], [no murmur], [positive posterior tibial pulse bilateral] Lungs: [CTA bilateral], [no rhonchi, no rales] , [no accessory muscle use] Abdominal: [soft], [epigastric area tender to palpation], [no guarding], [no appreciable organomegaly], [dressings intact] Ext: [no gross muscle atrophy], [no edema], [no contractures] Psych: [Alert], [oriented], [appropriate affect] Pertinent Studies: RUQ US Procedures: ERCP Laparoscopic cholecystectomy Patient Condition at Discharge: Stable Plan - Discharge Summary Discharge Rx Participant: No New Discharge Prescriptions: New HYDROcodone/APAP 5-325MG [[place] 5-325] 1 - 2 tab PO Q4H PRN #15 tab PRN Reason: Pain No Action ALPRAZolam [Xanax] 0.25 mg PO HS PARoxetine [Paxil] 20 mg PO HS Discharge Medication List ALPRAZolam [Xanax] 0.25 mg PO HS 07/11/18 [History] PARoxetine [Paxil] 20 mg PO HS 07/11/18 [History] HYDROcodone/APAP 5-325MG [[place] 5-325] 1 - 2 tab PO Q4H PRN #15 tab 07/14/18 [Rx ] Follow up Appointment(s)/Referral(s): Natalie Corrigan DO [Doctor of Osteopathic Medicine] - (2 weeks) Jackie Reed PAC [REFERRING] - 1-2 days Activity/Diet/Wound Care/Special Instructions: Keep the Band-Aids on until Monday. They can then be removed and you may shower. No tub baths for 1 week. Keep the Steri-Strips (little tapes) on for 1 week. Expect some bruising near the bellybutton. Ice to the incision for 24 hours. Follow a low-fat diet. See Dr. Corrigan in the office in 2 weeks. Call if questions or concerns about fever, chills, nausea, vomiting, wound concerns Discharge Disposition: HOME SELF-CARE
[2018-07-14 14:46] VITALS: BP 118/71; PULSE 58
[2018-07-15] MEDS ORDERED: PANTOPRAZOLE 40 MG TABLET PO SCH (07:30)
== END 2018-07-14 18:00 | disposition home or self-care (01) ==
LOC: EC 18:12 → 6PED 20:00
PROVIDERS: ADMIT Internal Medicine; ATTEND Internal Medicine
DX: K80.65 Calculus of gallbladder and bile duct with chronic cholecystitis with obstruction (principal); Z80.1 Family history of malignant neoplasm of trachea, bronchus and lung; Z79.899 Other long term (current) drug therapy; R00.2 Palpitations; E66.9 Obesity, unspecified; I83.90 Asymptomatic varicose veins of unspecified lower extremity; Z68.30 Body mass index [BMI] 30.0-30.9, adult; E87.6 Hypokalemia; F32.9 Major depressive disorder, single episode, unspecified; F41.9 Anxiety disorder, unspecified; F17.210 Nicotine dependence, cigarettes, uncomplicated
CPT/HCPCS: 99284 ×2; 47562; 96365 ×2; 96375 ×6; 96361; 96372 ×3; 96376 ×3; 36415; 88304; 80053 ×3; 82150; 83690 ×2; 85025 ×2; 85610; 81025; 74328; 76705; 43277; 43262; G0378 ×4; J2250 ×2; J2270 ×2; J1200; J1610; J1644 ×3; J1100; J2710; J2405 ×2; J2001 ×2; J0696 ×4; J3010 ×2; J1885; J1170; J0330; J2704 ×2; C9113 ×3; Q9967